=== PATIENT | female | born 1950 | race Caucasian/White ===

== ENCOUNTER → 2019-12-16 | Outpatient (CLI) | payer MEDICARE ==
[2019-12-16 15:39] LABS: ALBUMIN 4.4 g/dL (3.5-5.0); ANION GAP 10 (5-19); BLOOD UREA NITROGEN 17 mg/dL (7-20); CALCIUM 10.1 mg/dL (8.4-10.2); CARBON DIOXIDE 25 mmol/L (22-30); CHLORIDE 104 mmol/L (98-107); GLUCOSE 93 mg/dL (75-110); PHOSPHORUS 3.5 mg/dL (2.5-4.5)
== END ==
LOC: OD 14:32
PROVIDERS: ATTEND Physician Assistant Medical
DX: I10 Essential (primary) hypertension (principal)
CPT/HCPCS: 36415; 80069; 82088; 82383; 83835

== ENCOUNTER → 2019-12-23 | Outpatient (CLI) | payer MEDICARE ==
--- NOTE | 2019-12-23 12:48 | RADIOLOGY REPORT (SQ) ---
EXAM DESCRIPTION: DUPLEX ART/JEFFREY FLOW COMPLETE COMPLETED DATE/TIME: 12/23/2019 9:20 am REASON FOR STUDY: HTN (I10) I15.9 SECONDARY HYPERTENSION, UNSPECIFIED I10 ESSENTIAL (PRIMARY) HYPE RTENSION COMPARISON: None. TECHNIQUE: Realtime and static grayscale images acquired. Selected color Doppler, velocities and spe ctral images recorded. LIMITATIONS: Evaluation is limited due to the patient's inability to hold respiration for an extende d time. FINDINGS: RIGHT KIDNEY: RENAL ARTERY VELOCITIES: 57 cm/sec at the origin, 98.6 cm/sec at its midportion, and 70.8 cm/sec at t he hilum. The segmental artery PSV = 25.5 cm/sec. RENAL VEIN: Patent. VELOCITY RATIO: 0.87. Normal waveforms. KIDNEY: The right kidney measures 9.8 cm in length. There is no hydronephrosis. LEFT KIDNEY: RENAL ARTERY VELOCITIES: 108 cm/sec at the origin, 53.6 cm/sec at its midportion, and 42.7 cm/sec at the hilum. The segmental artery PSV = 28 cm/sec. RENAL VEIN: Patent. VELOCITY RATIO: 0.96. Normal waveforms. KIDNEY: The left kidney measures 10.2 cm in length. There is no hydronephrosis. BLADDER: Normal. OTHER: No other finding. IMPRESSION: No Doppler evidence of renal artery stenosis. COMMENT: NORMAL RENAL ARTERY/AORTA VELOCITY RATIO IS LESS THAN OR EQUAL TO 3.5.\ TECHNICAL DOCUMENTATION: JOB ID: [id number] 2010 [employer]- All Rights Reserved Reading location - IP/workstation name: [email or web address]
== END ==
LOC: RAD 08:22
PROVIDERS: ATTEND Physician Assistant Medical
DX: I15.9 Secondary hypertension, unspecified (principal)
CPT/HCPCS: 93975

== ENCOUNTER → 2020-02-28 | Outpatient (CLI) | payer MEDICARE ==
[2020-02-28 13:58] LABS: ALBUMIN 4.4 g/dL (3.5-5.0); ANION GAP 8 (5-19); BLOOD UREA NITROGEN 15 mg/dL (7-20); CALCIUM 10.2 mg/dL (8.4-10.2); CARBON DIOXIDE 26 mmol/L (22-30); CHLORIDE 103 mmol/L (98-107); GLUCOSE 88 mg/dL (75-110); PHOSPHORUS 3.9 mg/dL (2.5-4.5); POTASSIUM 4.1 mmol/L (3.6-5.0)
== END ==
LOC: OD 12:23
PROVIDERS: ATTEND Physician Assistant Medical
DX: I10 Essential (primary) hypertension (principal)
CPT/HCPCS: 36415; 80069

== ENCOUNTER 2020-08-03 11:47 | Observation (INO) | payer MEDICARE ==
[2020-08-03] MEDS ORDERED: ONDANSETRON HCL INJ/PF 4 MG/2 ML SDV IV ONE (12:31)
[2020-08-03] MEDS ORDERED: NORMAL SALINE 1000 ML 1,000 ML IV ONE (12:31)
--- NOTE | 2020-08-03 12:33 | ER Document Report ---
ED Medical Screen (RME) - General Chief Complaint: Nausea/Vomiting Stated Complaint: NAUSEA,VOMITING,ABDOMINAL PAIN Time Seen by Provider: 08/03/20 12:27 Mode of Arrival: Wheelchair Information source: Patient Notes: Patient is a 62-year-old female presenting with right upper quadrant/epigastric pain that began 3 days ago. She also reports associated vomiting. She states every time she eats she vomits. She denies any fever, chills, diarrhea. She has had no abdominal surgeries. Abdomen soft, nontender, nondistended. I have greeted and performed a rapid initial assessment of this patient. A comprehensive ED assessment and evaluation of the patient, analysis of test results and completion of the medical decision making process will be conducted by additional ED providers. I have specifically instructed the patient or family members with the patient to immediately return to any nursing staff should anything change in the patient's condition or with their chief complaint. TRAVEL OUTSIDE OF THE [place] IN LAST 30 DAYS: No - Related Data Allergies/Adverse Reactions: No Known Allergies Allergy (Verified 08/03/20 12:28) Home Medications: BP meds Past Medical History - Social History Frequency of alcohol use: None Drug Abuse: None Physical Exam - Vital signs Vitals: Temp Pulse Resp BP Pulse Ox 98.2 F 63 20 94/47 L 98 08/03/20 12:18 08/03/20 12:18 08/03/20 12:18 08/03/20 12:18 08/03/20 12:18 Course - Vital Signs Vital signs: Temp Pulse Resp BP Pulse Ox 98.2 F 63 20 94/47 L 98 08/03/20 12:18 08/03/20 12:18 08/03/20 12:18 08/03/20 12:18 08/03/20 12:18
--- NOTE | 2020-08-03 13:59 | RADIOLOGY REPORT (SQ) ---
EXAM DESCRIPTION: U/S ABDOMEN LIMITED W/O DOP IMAGES COMPLETED DATE/TIME: 08/03/2020 1:36 pm REASON FOR STUDY: RUG/epigastric pain COMPARISON: None. TECHNIQUE: Dynamic and static grayscale images acquired of the abdomen and recorded on PACS. Ellyo jose luis selected color Doppler and spectral images recorded. LIMITATIONS: None. FINDINGS: PANCREAS: No masses. Visualized pancreatic duct normal caliber. LIVER: No masses. Echotexture normal. LIVER VASCULATURE: Normal directional flow of the main portal vein and hepatic veins. GALLBLADDER: Gallstones are present. There is no significant wall thickening. There is some sludge. There is no pericholecystic fluid. ULTRASOUND-DETECTED NORRIS'S SIGN: Positive. INTRAHEPATIC DUCTS AND COMMON DUCT: CBD and intrahepatic ducts normal caliber. No filling defects. AORTA: No aneurysm. RIGHT KIDNEY: Normal size, 10 cm. Normal echogenicity. No solid or suspicious masses. No hydronephro sis. No calcifications. PERITONEAL AND RIGHT PLEURAL SPACE: No ascites or effusions. OTHER: No other significant findings. IMPRESSION: Cholelithiasis with positive sonographic Norris sign. Correlate for cholecystitis. TECHNICAL DOCUMENTATION: JOB ID: [id number] 2010 [id number]- All Rights Reserved Reading location - IP/workstation name: [email or web address]
[2020-08-03 14:09] LABS: ABSOLUTE LYMPHOCYTES (AUTO) 1.6 10^3/uL (0.5-4.7); ABSOLUTE MONOCYTES (AUTO) 1.4 10^3/uL (0.1-1.4); ABSOLUTE NEUT (AUTO) 14.9 10^3/uL (1.7-8.2); BASOPHILS % (AUTO) 0.1 % (0-2); HEMATOCRIT 44.6 % (36.0-47.0); HEMOGLOBIN 15.9 g/dL (12.0-15.5); MEAN CORPUSCULAR HEMOGLOBIN 32.4 pg (27.0-33.4); MEAN CORPUSCULAR HGB CONC 35.6 g/dL (32.0-36.0); MEAN CORPUSCULAR VOLUME 91 fl (80-97); PLATELET COUNT 357 10^3/uL (150-450); RED CELL DISTRIBUTION WIDTH 12.5 % (11.5-14.0); SEGMENTED NEUTROPHILS % (AUTO) 82.9 % (42-78); TOTAL CELLS COUNTED % (AUTO) 100 %
[2020-08-03] MEDS ORDERED: RINGERS LACTATED IV ONE (14:13)
[2020-08-03] MEDS ORDERED: PIPERACILLIN/TAZOBACTAM 4.5 GM VIAL IV ONE (14:15)
[2020-08-03 14:34] LABS: INTERNATIONAL RATION (INR) 0.99; PROTHROMBIN TIME 13.3 SEC (11.4-15.4)
[2020-08-03 14:35] LABS: ALBUMIN 4.5 g/dL (3.5-5.0); ALKALINE PHOSPHATASE 94 U/L (38-126); ANION GAP 15 (5-19); ASPARTATE AMINO TRANSFERASE 29 U/L (14-36); BILIRUBIN,DIRECT 0.2 mg/dL (0.0-0.4); BILIRUBIN,TOTAL 1.8 mg/dL (0.2-1.3); BLOOD UREA NITROGEN 18 mg/dL (7-20); CALCIUM 10.4 mg/dL (8.4-10.2); CARBON DIOXIDE 25 mmol/L (22-30); CHLORIDE 89 mmol/L (98-107); GLUCOSE 139 mg/dL (75-110); POTASSIUM 3.9 mmol/L (3.6-5.0); TOTAL PROTEIN 7.3 g/dL (6.3-8.2)
--- NOTE | 2020-08-03 14:59 | RADIOLOGY REPORT (SQ) ---
EXAM DESCRIPTION: CHEST SINGLE VIEW IMAGES COMPLETED DATE/TIME: 08/03/2020 2:42 pm REASON FOR STUDY: sepsis COMPARISON: None. EXAM PARAMETERS: NUMBER OF VIEWS: One view. TECHNIQUE: Single frontal radiographic view of the chest acquired. RADIATION DOSE: NA LIMITATIONS: None. FINDINGS: LUNGS AND PLEURA: No opacities, masses or pneumothorax. No pleural effusion. MEDIASTINUM AND HILAR STRUCTURES: No masses. Contour normal. HEART AND VASCULAR STRUCTURES: Heart normal in size. Normal vasculature. BONES: No acute findings. HARDWARE: None in the chest. OTHER: No other significant finding. IMPRESSION: NO ACUTE RADIOGRAPHIC FINDING IN THE CHEST. TECHNICAL DOCUMENTATION: JOB ID: [id number] 2010 [employer]- All Rights Reserved Reading location - IP/workstation name: [email or web address]
[2020-08-03 15:24] LABS: VENOUS BLOOD BASE EXCESS 2.4 mmol/L; VENOUS BLOOD HCO3 28.4 mmol/L (20-32); VENOUS BLOOD PCO2 48.9 mmHg (35-63); VENOUS BLOOD PH 7.38 (7.30-7.42)
--- NOTE | 2020-08-03 15:39 | ER Document Report ---
ED Medical Screen (RME) - General Chief Complaint: Nausea/Vomiting Stated Complaint: NAUSEA,VOMITING,ABDOMINAL PAIN Time Seen by Provider: 08/03/20 12:27 Mode of Arrival: Wheelchair TRAVEL OUTSIDE OF THE [place] IN LAST 30 DAYS: No - Related Data Pertinent History: Chief complaint: Nausea vomiting and abdominal pain History of present illness: 70-year-old female with no known prior history of gallbladder disease Zen with complaint of epigastric and right upper quadrant discomfort associated with nausea vomiting for over 48 hours. Symptoms began at the patient consumed a milkshake. She denies fever chills. She denies dysuria. She is having 5/10 discomfort right now. Allergies/Adverse Reactions: No Known Allergies Allergy (Verified 08/03/20 12:28) Home Medications: BP meds Past Medical History - General Information source: Patient - Social History Frequency of alcohol use: None Drug Abuse: None Family history: Reviewed & Not Pertinent - Past Medical History Cardiac Medical History: Reports: Hx Coronary Artery Disease, Hx Hypertension, Other - Past history of stent placement Pulmonary Medical History: Reports: None Endocrine Medical History: Denies: Hx Diabetes Mellitus Type 1, Hx Diabetes Mellitus Type 2 Past Surgical History: Reports: Hx Hysterectomy Review of Systems - Review of Systems Notes: Constitutional: Negative for fever. HENT: Negative for sore throat. Eyes: Negative for visual changes. Cardiovascular: Negative for chest pain. Respiratory: Negative for shortness of breath. Gastrointestinal: As per HPI. Genitourinary: Negative for dysuria. Musculoskeletal: Negative for back pain. Skin: Negative for rash. Neurological: Negative for headaches, weakness or numbness. 10 point ROS negative except as marked above and in HPI. Physical Exam - Vital signs Vitals: Temp Pulse Resp BP Pulse Ox 98.2 F 63 20 94/47 L 98 08/03/20 12:18 08/03/20 12:18 08/03/20 12:18 08/03/20 12:18 08/03/20 12:18 - Notes Notes: GENERAL: Well-developed well-nourished appearing in no acute distress. Does not look toxic. SKIN: Good turgor no rashes. HEAD: Normocephalic atraumatic. EYES: PERRLA. EOMI. Conjunctivae and sclerae clear. EARS: CANALS AND TMS CLEAR. NOSE: CLEAR. MOUTH: Moist mucosa. Good dentition. No stridor or edema. No drooling. NECK: Supple. No masses or thyromegaly. No adenopathy. Carotids 2+ without bruits. No JVD. BACK: Symmetrical without tenderness. CHEST: Respirations unlabored. Breath sounds clear and symmetrical. HEART: Regular rhythm. No murmur gallop or rub. ABDOMEN: Moderately tender right upper quadrant and epigastrium. Soft without masses, organomegaly or rebound. Bowel sounds normally active. No bruits. GENITALIA: Deferred. EXTREMITIES: No edema. No calf tenderness. Cap refill less than 1.5 seconds. Dorsalis pedis and posterior tibial pulses 3+ and symmetrical. NEUROLOGICAL: GCS 15. Alert and oriented x3. Normal gait. Fluent speech. Cranial nerves II through XII intact. Sensorimotor and cerebellar normal. Normal tone. PSYCHIATRIC: Appropriate affect. Course - Re-evaluation Re-evalutation: 08/03/20 15:38 Bili 1.8. Transaminases and lipase normal. Gallbladder ultrasound shows wall thickening, multiple stones present and positive sonographic Norris sign with no ductal dilatation. White count is 18,000. Lactate is pending. Blood cultures drawn. Patient is been given IV Zosyn. She is also been given Zofran and IV fluids. Will consult with Dr. Martinez the on-call general surgeon. - Vital Signs Vital signs: Temp Pulse Resp BP Pulse Ox 98.3 F 65 18 145/68 H 96 08/03/20 15:31 08/03/20 15:31 08/03/20 15:31 08/03/20 15:31 08/03/20 15:31 - Laboratory Result Diagrams: 08/03/20 13:45 08/03/20 13:45 Laboratory results interpreted by me: 08/03/20 08/03/20 13:45 13:45 WBC 18.0 H Hgb 15.9 H Lymph % (Auto) 9.0 L Absolute Neuts (auto) 14.9 H Seg Neutrophils % 82.9 H Sodium 129.0 L Chloride 89 L Est GFR ( Amer) 54 L Est GFR (MDRD) Non-Af 45 L Glucose 139 H Calcium 10.4 H Total Bilirubin 1.8 H Doctor's Discharge - Discharge Clinical Impression: Acute cholecystitis due to biliary calculus
--- NOTE | 2020-08-03 15:41 | ER Document Report ---
ED General - General Chief Complaint: Nausea/Vomiting Stated Complaint: NAUSEA,VOMITING,ABDOMINAL PAIN Time Seen by Provider: 08/03/20 12:27 Mode of Arrival: Wheelchair TRAVEL OUTSIDE OF THE [place] IN LAST 30 DAYS: No - HPI Notes: Chief complaint: Nausea vomiting and abdominal pain History of present illness: 70-year-old female with no known prior history of gallbladder disease Pradeep with complaint of epigastric and right upper quadrant discomfort associated with nausea vomiting for over 48 hours. Symptoms began at the patient consumed a milkshake. She denies fever chills. She denies dysuria. She is having 5/10 discomfort right now. - Related Data Allergies/Adverse Reactions: No Known Allergies Allergy (Verified 08/03/20 12:28) Home Medications: BP meds Past Medical History - General Information source: Patient - Social History Smoking Status: Never Smoker Frequency of alcohol use: None Drug Abuse: None Lives with: Family Family History: Reviewed & Not Pertinent - Past Medical History Cardiac Medical History: Reports: Hx Coronary Artery Disease, Hx Hypertension, Other - Past history of stent placement Pulmonary Medical History: Reports: None Endocrine Medical History: Denies: Hx Diabetes Mellitus Type 1, Hx Diabetes Mellitus Type 2 Past Surgical History: Reports: Hx Cardiac Surgery - stinits, Hx Hysterectomy Review of Systems - Review of Systems Notes: Review of Systems Notes: Constitutional: Negative for fever. HENT: Negative for sore throat. Eyes: Negative for visual changes. Cardiovascular: Negative for chest pain. Respiratory: Negative for shortness of breath. Gastrointestinal: As per HPI. Genitourinary: Negative for dysuria. Musculoskeletal: Negative for back pain. Skin: Negative for rash. Neurological: Negative for headaches, weakness or numbness. 10 point ROS negative except as marked above and in HPI. Physical Exam - Vital signs Vitals: Temp Pulse Resp BP Pulse Ox 98.2 F 63 20 94/47 L 98 08/03/20 12:18 08/03/20 12:18 08/03/20 12:18 08/03/20 12:18 08/03/20 12:18 - Notes Notes: GENERAL: Well-developed well-nourished female approximately stated age appearing in no acute distress. SKIN: Good turgor no rashes. HEAD: Normocephalic atraumatic. EYES: PERRLA. EOMI. Conjunctivae and sclerae clear. EARS: CANALS AND TMS CLEAR. NOSE: CLEAR. MOUTH: Moist mucosa. Good dentition. No stridor or edema. No drooling. NECK: Supple. No masses or thyromegaly. No adenopathy. Carotids 2+ without bruits. No JVD. BACK: Symmetrical without tenderness. CHEST: Respirations unlabored. Breath sounds clear and symmetrical. HEART: Regular rhythm. No murmur gallop or rub. ABDOMEN: Moderate tenderness right upper quadrant. Soft without masses, organomegaly or rebound. Bowel sounds normally active. No bruits. GENITALIA: Deferred. EXTREMITIES: No edema. No calf tenderness. Cap refill less than 1.5 seconds. Dorsalis pedis and posterior tibial pulses 3+ and symmetrical. NEUROLOGICAL: GCS 15. Alert and oriented x3. Normal gait. Fluent speech. Cranial nerves II through XII intact. Sensorimotor and cerebellar normal. Normal tone. PSYCHIATRIC: Appropriate affect. Course - Re-evaluation Re-evalutation: 08/03/20 15:45 IV Zosyn. IV normal saline. We will consult surgical list Dr. Martinez for admission. - Vital Signs Vital signs: Temp Pulse Resp BP Pulse Ox 98.3 F 65 18 145/68 H 96 08/03/20 15:31 08/03/20 15:31 08/03/20 15:31 08/03/20 15:31 08/03/20 15:31 - Laboratory Result Diagrams: 08/03/20 13:45 08/03/20 13:45 Laboratory results interpreted by me: 08/03/20 08/03/20 13:45 13:45 WBC 18.0 H Hgb 15.9 H Lymph % (Auto) 9.0 L Absolute Neuts (auto) 14.9 H Seg Neutrophils % 82.9 H Sodium 129.0 L Chloride 89 L Est GFR ( Amer) 54 L Est GFR (MDRD) Non-Af 45 L Glucose 139 H Calcium 10.4 H Total Bilirubin 1.8 H - Diagnostic Test Radiology reviewed: Reports reviewed - Per radiologist: Normal chest x-ray. Gallbladder ultrasound shows multiple stones and positive sonographic Norris sign without any ductal dilatation - EKG Interpretation by Me Additional EKG results interpreted by me: 08/03/20 15:45 Twelve-lead EKG reviewed by me contemporaneously: 1441 hrs. Indication for study: Upper abdominal pain Rhythm: Normal sinus Rate: 66 Intervals: Normal QRS axis: Is [address]/T wave changes: 3579 Comparison with prior tracing: None present Interpretation: Normal sinus rhythm. Old inferior infarct. Discharge - Discharge Clinical Impression: Acute cholecystitis due to biliary calculus Condition: Good Disposition: ADMITTED INPATIENT Admitting Provider: Dr. Martinez Unit Admitted: Surgical Floor
[2020-08-03 16:04] LABS: APPEARANCE,URINE CLEAR; BILIRUBIN,URINE NEGATIVE (NEGATIVE); COLOR,URINE YELLOW; GLUCOSE, URINE NEGATIVE (NEGATIVE); KETONES,URINE NEGATIVE (NEGATIVE); PROTEIN,URINE 30 mg/dL (NEGATIVE); URINE SPECIFIC GRAVITY 1.008; UROBILINOGEN,URINE NEGATIVE mg/dL (<2.0)
[2020-08-03] MEDS ORDERED: GLUCAGON,HUMAN RECOMB 1 MG INJ SUBCUT PRN (17:08)
[2020-08-03] MEDS ORDERED: NORMAL SALINE 1000 ML 1,000 ML IV PRN ×2 (17:08→19:09)
[2020-08-03] MEDS ORDERED: ONDANSETRON HCL INJ/PF 4 MG/2 ML SDV IV PRN (17:08)
[2020-08-03] MEDS ORDERED: MORPHINE SULFATE 10 MG/ML INJ IV PRN (17:08)
[2020-08-03] MEDS ORDERED: DEXTROSE 50%-WATER 25 GM/50 ML DISP.SYRIN IV PRN ×2 (17:08)
[2020-08-03] MEDS ORDERED: DEXTROSE 40% GEL 15 GM TUBE PO PRN ×2 (17:08)
--- NOTE | 2020-08-03 18:52 | PDOC H&P ---
History of Present Illness Admission Date/PCP: 08/03/20 15:53 Patient complains of: RUQ pain, nausea, and vomiting History of Present Illness: HUA COLEMAN is a 70 year old female with a 1 day history of right upper quadrant abdominal pain, nausea, and vomiting. It began after she ate a strawberry milkshake. She immediately began to feel nauseated, and had u ncontrollable vomiting. After vomiting, she felt less nauseated, however her pain continued. Her pain worsened, which is when she decided to present to the emergency department. In the ER the pain is unrelenting, situated in the right upper quadrant, and is sharp in nature. She reports that pain medicine is the only thing that has lessened her discomfort. Eating makes it worse. She rates her pain as 8 out of 10. She has a history of cardiac stents, and hypertension. She denies diabetes, renal failure, hepatic failure, or other serious medical problem. Past Medical History Cardiac Medical History: Reports: Coronary Artery Disease, Hypertension Pulmonary Medical History: Reports: None Endocrine Medical History: Denies: Diabetes Mellitus Type 1, Diabetes Mellitus Type 2 Past Surgical History Past Surgical History: Reports: Cardiac Catheterization - Stent placement, Hysterectomy Social History Lives with: Family Smoking Status: Never Smoker Electronic Cigarette use?: No Frequency of Alcohol Use: None Hx Recreational Drug Use: No Hx Prescription Drug Abuse: No Family History Family History: Reviewed & Not Pertinent Parental Family History Reviewed: Yes Children Family History Reviewed: Yes Sibling(s) Family History Reviewed.: Yes Medication/Allergy Home Medications: Aspirin [Ecotrin 81 mg EC Tablet] 81 mg PO DAILY 08/03/20 Metoprolol Tartrate [Lopressor 50 mg Tablet] 50 mg PO BID 08/03/20 Allergies/Adverse Reactions: No Known Allergies Allergy (Verified 08/03/20 12:28) Review of Systems Constitutional: ABSENT: chills, fatigue, fever(s) Eyes: ABSENT: visual disturbances Ears: ABSENT: hearing changes Nose, Mouth, and Throat: ABSENT: sore throat Cardiovascular: ABSENT: chest pain Respiratory: ABSENT: cough, dyspnea Gastrointestinal: PRESENT: abdominal pain, bloating, nausea, vomiting. ABSENT: heartburn, hematemesis, hematochezia, melena Genitourinary: ABSENT: dysuria Musculoskeletal: ABSENT: back pain Integumentary: ABSENT: pruritus, rash Neurological: ABSENT: confusion, convulsions, dizziness Psychiatric: ABSENT: anxiety, depression Endocrine: ABSENT: cold intolerance, heat intolerance Hematologic/Lymphatic: ABSENT: easy bleeding, easy bruising Physical Exam Vital Signs: Temp Pulse Resp BP Pulse Ox 98.3 F 65 18 145/68 H 96 08/03/20 15:31 08/03/20 15:31 08/03/20 15:31 08/03/20 15:31 08/03/20 15:31 Intake & Output 08/02/20 08/03/20 08/04/20 06:59 06:59 06:59 Intake Total 1100 Balance 1100 Weight 75.4 kg General appearance: PRESENT: no acute distress, cooperative Head exam: PRESENT: atraumatic, normocephalic Eye exam: PRESENT: EOMI, PERRLA. ABSENT: scleral icterus Mouth exam: PRESENT: moist, neck supple Teeth exam: ABSENT: poor dentation Neck exam: ABSENT: meningismus, tenderness, thyromegaly, tracheal deviation Respiratory exam: PRESENT: unlabored. ABSENT: tachypnea, wheezes Cardiovascular exam: ABSENT: tachycardia GI/Abdominal exam: PRESENT: guarding, Norris's sign, tenderness - RUQ. ABSENT: distended Rectal exam: PRESENT: deferred Extremities exam: ABSENT: clubbing Musculoskeletal exam: ABSENT: deformity Neurological exam: PRESENT: alert, awake, oriented to person, oriented to place, oriented to time, oriented to situation, CN II-XII grossly intact Psychiatric exam: ABSENT: agitated, anxious Focused psych exam: ABSENT: delusional Skin exam: ABSENT: cyanosis, erythema, jaundice Results Laboratory Results: 08/03/20 13:45 08/03/20 13:45 08/03/20 08/03/20 08/03/20 13:45 13:45 15:06 WBC 18.0 H RBC 4.90 Hgb 15.9 H Hct 44.6 MCV 91 MCH 32.4 MCHC 35.6 RDW 12.5 Plt Count 357 Seg Neutrophils % 82.9 H VBG pH 7.38 VBG pCO2 48.9 VBG HCO3 28.4 VBG Base Excess 2.4 Sodium 129.0 L Potassium 3.9 Chloride 89 L Carbon Dioxide 25 Anion Gap 15 BUN 18 Creatinine 1.20 Est GFR ( Amer) 54 L Glucose 139 H Lactic Acid Calcium 10.4 H Total Bilirubin 1.8 H AST 29 Alkaline Phosphatase 94 Total Protein 7.3 Albumin 4.5 Lipase 66.8 Urine Color Urine Appearance Urine pH Ur Specific [place] Urine Protein Urine Glucose (UA) Urine Ketones Urine Blood Urine RBC (Auto) 08/03/20 08/03/20 15:06 15:28 WBC RBC Hgb Hct MCV MCH MCHC RDW Plt Count Seg Neutrophils % VBG pH VBG pCO2 VBG HCO3 VBG Base Excess Sodium Potassium Chloride Carbon Dioxide Anion Gap BUN Creatinine Est GFR ( Amer) Glucose Lactic Acid 1.6 Calcium Total Bilirubin AST Alkaline Phosphatase Total Protein Albumin Lipase Urine Color YELLOW Urine Appearance CLEAR Urine pH 7.0 Ur Specific [place] 1.008 Urine Protein 30 H Urine Glucose (UA) NEGATIVE Urine Ketones NEGATIVE Urine Blood SMALL H Urine RBC (Auto) 4 08/03/20 13:45 Troponin I 0.038 Impressions: Abdomen Ultrasound 08/03/20 12:31 IMPRESSION: Cholelithiasis with positive sonographic Norris sign. Correlate for cholecystitis. Chest X-Ray 08/03/20 14:14 IMPRESSION: NO ACUTE RADIOGRAPHIC FINDING IN THE CHEST. Assessment & Plan - Diagnosis (1) Acute cholecystitis due to biliary calculus Is this a current diagnosis for this admission?: Yes - Time Anticipated Discharge Disposition: Home, Self Care Anticipated Discharge Timeframe: within 48 hours - Plan Summary Plan Summary: 70-year-old female with right upper quadrant pain, nausea, vomiting, and evidence of acute cholecystitis. She has an elevated white blood cell count and a mildly elevated bilirubin. I have recommended surgical intervention for her. She has agreed to this. COVID test now. Start antibiotics and IV fluids. Plan for surgical intervention in the near future. Risk/benefits discussed, informed consent obtained, and all questions answered.
--- NOTE | 2020-08-03 19:53 | EKG REPORT ---
SEVERITY:- ABNORMAL ECG - SINUS RHYTHM PROBABLE INFERIOR INFARCT, OLD : Confirmed by: Emmanuelle Edouard 03-Aug-2020 19:52:53
[2020-08-03] MEDS: FAMOTIDINE INJ/PF 20 MG/2 ML SDV IV SCH (21:37)
[2020-08-03] MEDS: PIPERACILLIN SODIUM/TAZOBACTAM 3.375 GM in NORMAL SALINE 100 ML IV SCH (21:37)
[2020-08-03] MEDS: METOPROLOL TARTRATE 50 MG TABLET PO SCH (23:05)
[2020-08-04] MEDS: PIPERACILLIN SODIUM/TAZOBACTAM 3.375 GM in NORMAL SALINE 100 ML IV SCH (05:45)
[2020-08-04] MEDS ORDERED: PROPOFOL INJ 200 MG/20 ML VIAL IV ONE (07:12)
[2020-08-04] MEDS ORDERED: SUGAMMADEX SODIUM 200 MG/2 ML SDV IV ONE (07:12)
[2020-08-04] MEDS ORDERED: MORPHINE SULFATE 10 MG/ML INJ ONE (07:12)
[2020-08-04] MEDS ORDERED: FENTANYL CITRATE INJ/PF 100 MCG/2 ML AMPUL ONE (07:12)
[2020-08-04] MEDS ORDERED: MIDAZOLAM 2 MG/2 ML INJ ONE (07:12)
[2020-08-04] MEDS ORDERED: ONDANSETRON HCL INJ/PF 4 MG/2 ML SDV ONE (07:12)
[2020-08-04] MEDS ORDERED: LIDOCAINE 2% INJ-PF (20 MG/ML) 10 ML AMPUL ONE (07:17)
[2020-08-04] MEDS ORDERED: BUPIVACAINE INJ/PF LIPOSOME/PF 266 MG/20 ML SDV ONE (07:26)
[2020-08-04] MEDS ORDERED: GLUCAGON,HUMAN RECOMB 1 MG INJ ONE (07:50)
[2020-08-04] MEDS ORDERED: MEPERIDINE HCL/PF INJ 25 MG/1 ML DISP.SYRIN IV PRN (09:02)
[2020-08-04] MEDS ORDERED: ONDANSETRON HCL INJ/PF 4 MG/2 ML SDV IV PRN (09:02)
[2020-08-04] MEDS ORDERED: PROMETHAZINE HCL INJ 25 MG/1 ML VIAL IV PRN (09:02)
[2020-08-04] MEDS ORDERED: FENTANYL CITRATE INJ/PF 100 MCG/2 ML AMPUL IV PRN ×3 (09:02)
[2020-08-04] MEDS ORDERED: OXYCODONE-ACETAMINOPHEN 5-325 MG TABLET PO PRN ×2 (09:02)
[2020-08-04] MEDS ORDERED: DIPHENHYDRAMINE HCL 50 MG/ML VIAL IV PRN (09:02)
[2020-08-04] MEDS ORDERED: MORPHINE SULFATE 10 MG/ML INJ IV PRN (09:02)
[2020-08-04] MEDS ORDERED: ASPIRIN 81 MG TABLET, ENT COATED PO SCH (10:00)
--- NOTE | 2020-08-04 10:13 | Operative Report ---
Nonrecallable Operative Report DATE OF SURGERY: 08/04/20 PREOPERATIVE DIAGNOSIS: cholecystitis POSTOPERATIVE DIAGNOSIS: cholecystitis OPERATION: laparoscoic cholecystectomy iwth cholangiograms SURGEON: MAKI KRAFT ANESTHESIA: GA TISSUE REMOVED OR ALTERED: gallbladder COMPLICATIONS: none ESTIMATED BLOOD LOSS: 50cc INTRAOPERATIVE FINDINGS: see note PROCEDURE: After obtaining informed consent, the patient was taken to the operating room. General Anesthesia was induced; the arms were extended, and the abdomen was exposed, and prepped and draped in a sterile fashion. Instrumentation was set up for laparoscopic cholecystectomy. Surgical plan and surgical timeout were conducted. A vertical incision was made above the umbilicus, and a verres needle was inserted uneventfully into the peritoneal cavity. Pneumoperitoneum was established. The verres needle was removed and a millimeter trocar was inserted and a 10 mm laparoscope was inserted. Visualization of the peritoneal cavity confirmed safe uneventful entry. Under direct visualization 3 additional 5 mm ports were established, one in the subxiphoid position and second in the subcostal position. Visualization of the hepatobiliary anatomy revealed no anatomic variations. A grasper was placed on the fundus of the gallbladder and the gallbladder is elevated over the right surface of the liver; a second grasper was used to grasp the infundibulum of the gallbladder. The neck of the gallbladder and junction with the cystic duct was dissected out. The Cystic artery was in its usual location medial and cephalad to the cystic duct. The cystic artery was surrounded with a right angle clamp, clipped twice proximally and divided with laparoscopic scissors. We now opened the triangle of [place] by dividing the peritoneal reflection on both the medial and lateral sides of the cystic duct infundibular junction. The critical view was obtained. We now milked the cystic duct of any possible stones, clipped the cystic duct the specimen side and performed a cystic ductotomy. Cholangiogram catheter was then placed into the cystic duct stump intraoperative cholangiogram revealed good flow into the duodenum both right and left hepatic ducts were identified no stones were seen in the common bile duct. A Endo Clip was then placed x2 on the cystic duct stump when the cholangiogram catheter was removed The gallbladder was now removed from the undersurface of the liver using hook cautery dissection. Graspers were repositioned and the gallbladder was removed uneventfully from the abdominal cavity through the super umbilical port site incision. The specimen was examined, then passed off to pathology for permanent analysis. We returned to the peritoneal cavity check for bleeding, and evidence of bile leak, and there was none. We Confirmed satisfactory placement of clips on cystic duct and cystic artery were secured . At this point we felt the operation was complete. The subcutaneous tissue was then anesthetized with quarter percent Marcaine Sponge and needle counts are correct. All ports rem natalya under direct visualization pneumoperitoneum evacuated, and 5 mm port wounds closed with 3-0 Vicryl suture, benzoin and Steri-Strips. The patient was extubated, and taken to the recovery room in stable condition.
--- NOTE | 2020-08-04 10:16 | Discharge Summary ---
Discharge Summary (SDC) - Discharge Final Diagnosis: Acute cholecystitis Date of Surgery: 08/04/20 Discharge Date: 08/04/20 Condition: Good Prescriptions: Hydrocodone/Acetaminophen [[place] 10-325 mg Tablet] 1 tab PO Q6HP PRN #15 tablet PRN Reason: Discharge Diet: As Tolerated Discharge Activity: Activity As Tolerated, No Lifting Over 10 Pounds Report the Following to Your Physician Immediately: Vomiting, Fever over 101 Degrees, Unusual Bleeding - appoint with me in sugery clinic in 7-10 days.
[2020-08-04 11:39] LABS: ABSOLUTE LYMPHOCYTES (AUTO) 1.1 10^3/uL (0.5-4.7); ABSOLUTE MONOCYTES (AUTO) 1.1 10^3/uL (0.1-1.4); ABSOLUTE NEUT (AUTO) 11.1 10^3/uL (1.7-8.2); BASOPHILS % (AUTO) 0.2 % (0-2); EOSINOPHILS % (AUTO) 0.1 % (0-6); HEMATOCRIT 36.1 % (36.0-47.0); LYMPHOCYTES % (AUTO) 8.5 % (13-45); MEAN CORPUSCULAR HEMOGLOBIN 32.2 pg (27.0-33.4); MEAN CORPUSCULAR HGB CONC 34.8 g/dL (32.0-36.0); MEAN CORPUSCULAR VOLUME 93 fl (80-97); MONOCYTES % (AUTO) 8.2 % (3-13); PLATELET COUNT 224 10^3/uL (150-450); RED CELL DISTRIBUTION WIDTH 12.5 % (11.5-14.0); TOTAL CELLS COUNTED % (AUTO) 100 %; WHITE BLOOD COUNT 13.4 10^3/uL (4.0-10.5)
[2020-08-04 11:49] LABS: HEMOGLOBIN 12.5 g/dL (12.0-15.5)
[2020-08-04 11:51] LABS: ALBUMIN 2.9 g/dL (3.5-5.0); ALKALINE PHOSPHATASE 86 U/L (38-126); ANION GAP 9 (5-19); ASPARTATE AMINO TRANSFERASE 132 U/L (14-36); BILIRUBIN,DIRECT 0.7 mg/dL (0.0-0.4); BLOOD UREA NITROGEN 16 mg/dL (7-20); CALCIUM 8.9 mg/dL (8.4-10.2); CARBON DIOXIDE 23 mmol/L (22-30); CHLORIDE 104 mmol/L (98-107); GLUCOSE 119 mg/dL (75-110); POTASSIUM 3.1 mmol/L (3.6-5.0); TOTAL PROTEIN 5.4 g/dL (6.3-8.2)
[2020-08-04] MEDS: FAMOTIDINE INJ/PF 20 MG/2 ML SDV IV SCH (13:59)
[2020-08-04] MEDS: METOPROLOL TARTRATE 50 MG TABLET PO SCH (13:59)
[2020-08-04 16:10] VITALS: BP 119/45
[2020-08-04] MEDS ORDERED: NEOSTIGMINE METHYLSULFATE 10 MG/10 ML VIAL ONE (16:38)
[2020-08-04] MEDS ORDERED: METOPROLOL TARTRATE PF/INJ 5 MG/5 ML SDV IV ONE (16:38)
[2020-08-04] MEDS ORDERED: GLYCOPYRROLATE 1 MG/5 ML VIAL ONE (16:38)
[2020-08-04] MEDS ORDERED: SUCCINYLCHOLINE CHLORIDE INJ 200 MG/10 ML VIAL ONE (16:38)
[2020-08-04] MEDS ORDERED: KETOROLAC TROMETHAMINE 60 MG/2 ML SDV ONE (16:38)
[2020-08-04] MEDS ORDERED: ROCURONIUM BROMIDE INJ 50 MG/5 ML VIAL IV ONE (16:38)
--- NOTE | 2020-08-05 14:35 | RADIOLOGY REPORT (SQ) ---
EXAM DESCRIPTION: CHOLANGIOGRAM OPERATIVE IMAGES COMPLETED DATE/TIME: 08/05/2020 1:31 pm REASON FOR STUDY: LAP RICK WITH IOC R10.11 RIGHT UPPER QUADRANT PAIN R11.2 NAUSEA WITH VOMITING, UNSPECIFIED COMPARISON: None. FLUOROSCOPY TIME: 0.3 minutes Spot images saved to PACS. TECHNIQUE: Intra-operative images acquired during surgical procedure to evaluate progress. NUMBER OF IMAGES: 1 LIMITATIONS: None. FINDINGS: Fluoroscopy was provided for intraoperative procedure. Please refer to the operative repo rt for further discussion. IMPRESSION: IMAGE(S) OBTAINED DURING PROCEDURE. COMMENT: Quality ID [id number]: Final reports for procedures using fluoroscopy that document radiation exp osure indices, or exposure time and number of fluorographic images (if radiation exposure indices are not available) Please consult full operative report of the attending physician for description of the procedure. TECHNICAL DOCUMENTATION: JOB ID: [id number] 2010 [employer]- All Rights Reserved Reading location - IP/workstation name: [email or web address]
== END 2020-08-04 17:40 | disposition home or self-care (01) ==
LOC: ER 11:47 → EH 15:53 → INTOOBSV 15:53 → 2N 18:02
PROC: 0FT44ZZ Resection of Gallbladder, Percutaneous Endoscopic Approach (ICD-10-PCS; principal; 2020-08-03)
DX: K80.12 Calculus of gallbladder with acute and chronic cholecystitis without obstruction (principal); R10.11 Right upper quadrant pain; R10.13 Epigastric pain; R11.2 Nausea with vomiting, unspecified; I25.10 Atherosclerotic heart disease of native coronary artery without angina pectoris; I10 Essential (primary) hypertension; R14.0 Abdominal distension (gaseous); Z79.82 Long term (current) use of aspirin; Z79.899 Other long term (current) drug therapy; Z20.828 Contact with and (suspected) exposure to other viral communicable diseases
CPT/HCPCS: 47563; 93005; 99285; 96361; 96374; 36415 ×2; 87040; 83605; 83690; 85025 ×2; 85610; 80053 ×2; 81001; 84484; 82803; 88304 ×2; 71045; 74300; 76705; 93010; 00790; G0378 ×2; U0003; J2250; J3490 ×4; J1885; J3010; A9270 ×3; J2270; J2710; J0330; J2405 ×2; J7050 ×2; J7030 ×2; J2704; S0028 ×2; J2543 ×3; C9290; C9803; 790; 87635; J1610